=== PATIENT | male | born 1960 | race Caucasian/White ===

== ENCOUNTER 2021-08-06 18:15 | Emergency (ER) | payer SELFPAY ==
[2021-08-06 18:24] VITALS: BP 162/101; PULSE 89; RESP 22; TEMP 36.8; O2SAT 97; BMI 22.4
[2021-08-06] MEDS: KETOROLAC 30 MG/ML VIAL 15 MG IV (18:43)
[2021-08-06 18:48] LABS: Appearance Urine UA SL CLOUDY; Bilirubin Urine UA 1+ (NEGATIVE); Color Urine UA BROWN; Glucose Urine UA NEGATIVE (Negative); Ketones Urine UA TRACE (NEGATIVE); Leukocyte Esterase Urine UA TRACE (NEGATIVE); Nitrite Urine UA NEGATIVE (Negative); Occult Blood Urine UA 3+ (Negative); Protein Urine UA 1+ (Negative); pH Urine UA 5.5 (4.5-8.0)
[2021-08-06 18:59] LABS: Bacteria Urine None Seen; Culture Indicated Urine Specimen Cultured; Ictotest Urine Negative (Negative); RBC Urine >100/HPF (0-5/HPF); WBC Urine 1-5/HPF (0-5/HPF)
[2021-08-06 19:00] LABS: Add Manual Diff / Slide Review NO; Basophils Absolute Auto 100 /uL (0-100); Basophils Percent Auto 0.3 % (0-2); Eosinophils Absolute Auto 0 /uL (0-450); Eosinophils Percent Auto 0.2 % (2-4); Hematocrit 47.4 % (41-53); Hemoglobin 16.2 g/dL (13.5-17.5); Lymphocytes Absolute Auto 1300 /uL (1100-4500); Lymphocytes Percent Auto 7.3 % (25-40); Mean Corpuscular HGB Conc 34.3 % (30-36); Mean Corpuscular Hemoglobin 31.3 PG (26-34); Mean Corpuscular Volume 91.2 fL (80-100); Monocytes Absolute Auto 1800 /uL (0-900); Monocytes Percent Auto 10.3 % (3-14); Neutrophils Absolute Auto 14300 /uL (1500-7000); Neutrophils Percent Auto 81.9 % (50-75); Platelet Count 288 X10^3/uL (150-400); Red Blood Cell Count 5.19 X10^6/uL (4.5-5.9); White Blood Cell Count 17.4 X10^3/uL (4.5-11.0)
[2021-08-06 19:11] LABS: Alanine Aminotransferase 53 IU/L (<50); Albumin 4.5 g/dL (3.5-5.0); Albumin Globulin Ratio 1.5 (1.0-2.8); Alkaline Phosphatase 67 U/L (38-126); Aspartate Aminotransferase 45 IU/L (17-59); BUN Creatinine Ratio 10.7 (6-22); Bilirubin Total 1.6 mg/dL (0.2-1.3); Blood Urea Nitrogen 18 mg/dL (9-20); Calcium 9.2 mg/dL (8.4-10.2); Carbon Dioxide 26 mmol/L (22-32); Chloride 102 mmol/L (98-107); Estimated Glomerular Filt Rate 41.7 mL/min (>60); Globulin 3.1 g/dL (1.7-4.1); Glucose 123 mg/dL (80-110); HEMOLYSIS < 15 (0-50); Lipase 26 U/L (23-300); Potassium 4.1 mmol/L (3.4-5.1); Sodium 136 mmol/L (137-145); Total Protein 7.6 g/dL (6.3-8.2)
--- NOTE | 2021-08-06 19:17 | ED.MALEGU ---
HPI - Male Genitourinary General Chief complaint: Urogenital-Male Stated complaint: Left lower back pain x3days Time Seen by Provider: 08/06/21 18:34 Source: patient Mode of arrival: Wheelchair Limitations: no limitations History of Present Illness HPI Narrative: This is a 61-year-old male comes in with complaint of right flank pain that started either last night about 8:00 a.m. this morning he is unsure. He states it has been persistent it has not moved to the front. It is not into the testicle. He has had some hematuria. He denies dysuria, urgency or frequency. He has had some nausea and some dry heaves but not currently. He denies any fevers. No issues with bowel movements. No abdominal pain. Patient states he has had many kidney stones in the past in the usually pass on their own. He has only had few emergency room visits or them but states he thought this might be a very large stone as it has not been moving from his back to his front. Patient is on lisinopril/hydrochlorothiazide daily for hypertension. He states he has had appendectomy, and surgery on his upper extremity for broken bones. He states he has an allergy to penicillin. Related Data Previous Rx's Medication Instructions Recorded lisinopril 20 1 tab PO DAILY #90 tab 10/20/19 mg-hydrochlorothiazide 25 mg tablet oxycodone 5 mg tablet 5 mg PO QID PRN #14 tab 08/06/21 tamsulosin 0.4 mg capsule (Flomax) 0.4 mg PO DAILY #7 cap 08/06/21 Allergies Allergy/AdvReac Type Severity Reaction Status Date / Time Penicillin Allergy Intermediate When he Uncoded 10/20/19 13:41 was a kid. Sachi Review of Systems Review of Systems ROS Unobtainable: All systems reviewed & are unremarkable except as noted in HPI and below Patient History Medical History Chronic hepatitis C Essential (primary) hypertension Fractures H/O migraine (~1973) H/O renal calculi Headache Surgical History Anesthesia History of surgery on arm (~2007) S/P tonsillectomy and adenoidectomy (~1966) Family History (Updated 11/02/19 @ 22:26 by Lara Vaughan) Father Coronary artery disease Diabetes mellitus Hypertension Hyperlipidemia Mother History of heart disease Hyperlipidemia Hypertension Brother Poor health History of heart disease Hyperlipidemia Hypertension Brother Drug overdose Sister Hypertension Sister Epileptic Sister Hypertension Grandmother Diabetes mellitus History of heart disease Hypertension Hyperlipidemia Social History Smoking Status: Current every day smoker Smoking Status: Current every day smoker alcohol intake frequency: 0-2 drinks per day Substance Use Type: marijuana Exam Narrative Exam Narrative: GENERAL: Alert and oriented x three, male in moderate distress. HEENT: Head normocephalic, atraumatic, EOMI, pupils reactive, face symmetric, moist mucous membranes NECK: Supple, full range of motion CARDIOVASCULAR: Regular rate and rhythm without murmurs, rubs or gallops. RESPIRATORY: Breath sounds equal bilaterally, no wheezes rales or rhonchi. ABDOMEN: Soft, nontender. Normoactive bowel sounds all 4 quadrants. No guarding or rebound, rigidity, no mass : No CVA tenderness EXTREMITIES: Normal range of motion, no clubbing or edema. Neurovascularly intact NEUROLOGICAL: Cranial nerves II through XII grossly intact. Moving all extremities SKIN: Warm, dry, no petechiae, no rashes or lesions. Initial Vital Signs Initial Vital Signs: Vital Signs Temperature 98.2 F 08/06/21 18:24 Pulse Rate 89 08/06/21 18:24 Respiratory Rate 22 08/06/21 18:24 Blood Pressure 162/101 H 08/06/21 18:24 Pulse Oximetry 97 08/06/21 18:24 Course Orders Ordered: Discontinued Medications Ketorolac Tromethamine (Ketorolac 30 Mg/Ml Vial) 15 mg IV NOW ONE Stop: 08/06/21 18:35 Last Admin: 08/06/21 18:43 Dose: 15 mg Documented by: KARI Tamsulosin HCl (Tamsulosin 0.4 Mg Capsule) 0.4 mg PO NOW ONE Stop: 08/06/21 19:28 Last Admin: 08/06/21 19:42 Dose: 0.4 mg Documented by: MIMI Vital Signs Vital signs: Vital Signs - 8 hr 08/06/21 18:24 08/06/21 19:21 Temperature 98.2 F 97.7 F Pulse Rate 89 82 Respiratory Rate 22 Blood Pressure 162/101 H 130/86 Pulse Oximetry 97 94 MDM - Male Genitourinary Lab Data Result diagrams: 08/06/21 18:49 08/06/21 18:49 Labs: Lab Results 08/06/21 08/06/21 08/06/21 Range/Units 18:29 18:49 18:49 WBC 17.4 H (4.5-11.0) X10^3/uL RBC 5.19 (4.5-5.9) X10^6/uL Hgb 16.2 (13.5-17.5) g/dL Hct 47.4 (41-53) % MCV 91.2 (80-100) fL MCH 31.3 (26-34) PG MCHC 34.3 (30-36) % RDW 13.0 (11.6-14.8) % Plt Count 288 (150-400) X10^3/uL Neut % (Auto) 81.9 H (50-75) % Lymph % (Auto) 7.3 L (25-40) % [place] % (Auto) 10.3 (3-14) % Eos % (Auto) 0.2 L (2-4) % Baso % (Auto) 0.3 (0-2) % Neut # (Auto) 29521 H (5657-2660) /uL Lymph # (Auto) 1300 (0597-2828) /uL [place] # (Auto) 1800 H (0-900) /uL Eos # (Auto) 0 (0-450) /uL Baso # (Auto) 100 (0-100) /uL Sodium 136 L (137-145) mmol/L Potassium 4.1 (3.4-5.1) mmol/L Chloride 102 (98-107) mmol/L Carbon Dioxide 26 (22-32) mmol/L BUN 18 (9-20) mg/dL Creatinine 1.68 H (0.66-1.25) mg/dL Estimated GFR 41.7 L (>60) mL/min BUN/Creatinine Ratio 10.7 (6-22) Glucose 123 H (80-110) mg/dL Calcium 9.2 (8.4-10.2) mg/dL Total Bilirubin 1.6 H (0.2-1.3) mg/dL AST 45 (17-59) IU/L ALT 53 H (<50) IU/L Alkaline Phosphatase 67 (38-126) U/L Total Protein 7.6 (6.3-8.2) g/dL Albumin 4.5 (3.5-5.0) g/dL Globulin 3.1 (1.7-4.1) g/dL Albumin/Globulin Ratio 1.5 (1.0-2.8) Lipase 26 (23-300) U/L Urine Color Brown Urine Appearance Sl cloudy Urine pH 5.5 (4.5-8.0) Ur Specific Coulters 1.020 (1.000-1.035) Urine Protein 1+ H (Negative) Urine Glucose (UA) Negative (Negative) g/dL Urine Ketones Trace H (NEGATIVE) Urine Occult Blood 3+ H (Negative) Urine Nitrate Negative (Negative) Urine Bilirubin 1+ H (NEGATIVE) Ur Bilirubin Confirm Negative (Negative) Urine Urobilinogen 1.0 (0.2) E.U./dL Ur Leukocyte Esterase Trace H (NEGATIVE) Urine RBC >100/hpf H (0-5/HPF) Urine WBC 1-5/hpf (0-5/HPF) Urine Bacteria None seen (None) Ur Culture Indicated? Specimen cultured MDM Narrative Medical decision making narrative: This is a 61-year-old male who comes with complaint of kidney stone. Patient states he has had many of them in the past. This 1 has been quite painful and does not seem to be moving along. His labs show leukocytosis and elevation in creatinine with no comparison labs available. Discussed with patient would like a CT KUB your least additional imaging. He is reluctant secondary to financial reasons. He is pain controlled. At this time he feels comfortable with Flomax, oral pain medication for pain control and would return to the emergency department if not improving. Is aware of his change in renal function or potential change and that he needs to follow up to double check with his physician who does have access to his prior labs for comparison. He was given referral to Urology and asked to return if he develops fevers intractable or worsening symptoms. Discharge Plan Departure Patient Disposition: Home Clinical Impression: Kidney stone Instructions: DI for Kidney Stones Activity Restrictions/Additional Instructions: Follow up with urology if your symptoms are not improving. Referral is included. You can also follow up with Dr. Post. It is noted that your renal function is not normal today. This does need to be rechecked in 48-72 hours or verified that this is your baseline creatinine with Dr. Post. Take Flomax once daily until gone. You may take ibuprofen up to 800 mg every 8 hours and/or Tylenol up to a 1000 mg every 8 hours for pain. If this is an adequate take narcotic pain medication 1-2 tablets every 6 hours needed. This medication can make you sleepy do not drive, perform hazardous activities or make any major decisions while taking it. This medication will make you constipated please take a stool softener once to twice daily until stools are soft and regular. Prescription sent to [facility] in [place] Please return for fevers, intractable or worsening back or flank pain, abdominal pain, difficulty or inability urinate, persistent vomiting, lightheadedness or passing out or other new or concerning symptoms. Prescriptions: New tamsulosin [Flomax] 0.4 mg capsule 0.4 mg PO DAILY Qty: 7 0RF oxycodone 5 mg tablet 5 mg PO QID PRN (Reason: pain) Qty: 14 0RF No Action lisinopril-hydrochlorothiazide 20-25 mg tablet 1 tab PO DAILY Qty: 90 3RF Referrals: Ibrahima Leiva MD [Physician] - Fly Post MD [Primary Care Provider] -
[2021-08-06 19:21] VITALS: BP 130/86; PULSE 82; TEMP 36.5; O2SAT 94
[2021-08-06] MEDS: TAMSULOSIN 0.4 MG CAPSULE PO (19:42)
== END 2021-08-06 19:50 | disposition home or self-care (01) ==
PROVIDERS: Emergency Provider Emergency Medicine; PCP Internal Medicine
DX: N20.0 Calculus of kidney (principal)
CPT/HCPCS: 80053; 81001; 83690; 85025; 87086; 96374; 99283; 99284; J1885

== ENCOUNTER → 2021-08-19 14:52 | Outpatient (CLI) | payer SELFPAY ==
[2021-08-19 15:50] LABS: BUN Creatinine Ratio 24.7 (6-22); Blood Urea Nitrogen 23 mg/dL (9-20); Calcium 10.3 mg/dL (8.4-10.2); Carbon Dioxide 32 mmol/L (22-32); Chloride 101 mmol/L (98-107); Estimated Glomerular Filt Rate > 60.0 mL/min (>60); Glucose 79 mg/dL (80-110); HEMOLYSIS < 15 (0-50); Sodium 142 mmol/L (137-145)
== END ==
PROVIDERS: PCP Internal Medicine; Referring Provider Internal Medicine; Visit Provider Internal Medicine
DX: I10 Essential (primary) hypertension (principal); N17.9 Acute kidney failure, unspecified
CPT/HCPCS: 36415; 80048

== ENCOUNTER → 2024-07-01 12:22 | Outpatient (CLI) | payer SELFPAY ==
[2024-07-01 19:39] LABS: Alanine Aminotransferase 41 IU/L (<50); Albumin 4.4 g/dL (3.5-5.0); Albumin Globulin Ratio 1.5 (1.0-2.8); Alkaline Phosphatase 96 U/L (38-126); Aspartate Aminotransferase 36 IU/L (17-59); BUN Creatinine Ratio 20.5 (6-22); Bilirubin Total 0.8 mg/dL (0.2-1.3); Blood Urea Nitrogen 17 mg/dL (9-20); Calcium 9.5 mg/dL (8.4-10.2); Carbon Dioxide 27 mmol/L (22-32); Chloride 103 mmol/L (98-107); Cholesterol 182 mg/dL (140-199); Estimated Glomerular Filt Rate > 60 mL/min (>60); Globulin 2.9 g/dL (1.7-4.1); Glucose 99 mg/dL (80-110); HDL Cholesterol 51 mg/dL (40-60); HEMOLYSIS < 15 (0-50); LDL Cholesterol Calculated 110 mg/dL (<100); Sodium 137 mmol/L (137-145); Total Protein 7.3 g/dL (6.3-8.2); Triglycerides 106 mg/dL (35-150)
[2024-07-01 20:09] LABS: Prostate Specific Antigen Scrn 0.522 ng/mL (0.1-4.0)
== END ==
PROVIDERS: PCP Internal Medicine; Referring Provider Internal Medicine; Visit Provider Internal Medicine
DX: I10 Essential (primary) hypertension (principal); B18.2 Chronic viral hepatitis C; Z13.6 Encounter for screening for cardiovascular disorders; Z12.5 Encounter for screening for malignant neoplasm of prostate; Z13.220 Encounter for screening for lipoid disorders
CPT/HCPCS: 80053; 80061; G0103